=== PATIENT | female | born 1940 | race Two or more races ===

== ENCOUNTER 2021-11-06 07:30 | Inpatient (IN) | payer OTHER ==
[~2021-11-06] VITALS: Ht 152.4 cm; Wt 58.1 kg
[2021-11-06] MEDS ORDERED: JANUMET 50-1,01 EACH PO (09:38)
[2021-11-06] MEDS ORDERED: MELOXICAM15 MG PO (09:39)
[2021-11-06] MEDS ORDERED: GABAPENTIN100 M2 PO (09:39)
[2021-11-06] MEDS ORDERED: FAMOTIDINE40 MG PO (09:39)
[2021-11-06] MEDS ORDERED: LOSARTAN POTASS50 MG PO (09:39)
[2021-11-06] MEDS ORDERED: LEVO-T25 MCG PO (09:40)
[2021-11-06] MEDS ORDERED: DAFLONEX-XL 11300 MG PO (09:40)
[2021-11-06] MEDS ORDERED: LIPITOR20 MG PO (09:41)
[2021-11-09] MEDS ORDERED: AMLODIPINE BESYL5 MG (10:01)
[2021-11-09] MEDS ORDERED: PIROXICAM20 MG (10:01)
[2021-11-09] MEDS ORDERED: OMEPRAZOLE20 MG (10:01)
[2021-11-11] MEDS ORDERED: INTEGRA PLUS C1 EACH PO (06:41)
[2021-11-11] MEDS ORDERED: ULTRAM50 MG PO (06:41)
[2021-11-11] MEDS ORDERED: BACTRIM DS TAB1 EACH PO (06:41)
[2021-11-11] MEDS ORDERED: XARELTO10 MG PO (06:41)
== END 2021-11-11 13:51 | DRG 470 ==
LOC: ADM 07:30 → SURH 11-09 06:18 → O/R 11-09 06:18 → EDSTATUS 11-09 07:30 → CIR.AMB 11-09 07:30 → SURG 11-09 07:30 → SURH 11-09 13:22 → O/R 11-09 15:42 → SURH 11-09 15:43
PROVIDERS: ADMIT Orthopaedic Surgery Sports Medicine; ATTEND Orthopaedic Surgery Sports Medicine
PROC: 0SR90JZ Replacement of Right Hip Joint with Synthetic Substitute, Open Approach (ICD-10-PCS; principal; 2021-11-09 09:15)
DX: M16.11 Unilateral primary osteoarthritis, right hip (principal); I10 Essential (primary) hypertension; E03.9 Hypothyroidism, unspecified; Z20.822 Contact with and (suspected) exposure to COVID-19; E11.9 Type 2 diabetes mellitus without complications